=== PATIENT | female | born 1970 | race Caucasian/White ===

== ENCOUNTER 2022-06-06 14:38 | Outpatient (CLI) | payer BC, SELFPAY ==
[2022-06-06 21:28] LABS: Albumin* 4.8 g/dL (3.3-5.0); Chloride* 98 mmol/L (96-114)
[2022-06-06 21:30] LABS: Potassium* 4.2 mmol/L (3.6-5.1); Sodium* 136 mmol/L (135-149)
[2022-06-06 21:31] LABS: Aspartate Amino Transferase* 23 U/L (12-35); Bilirubin Total* 0.4 mg/dL (0.1-1.5); Carbon Dioxide* 28 mmol/L (20-32); Creatinine* 0.9 mg/dL (0.5-1.5); Estimated Glomerular Filt Rate 78 ml/min; Total Protein* 7.7 g/dL (6.0-8.3)
[2022-06-06 21:32] LABS: Alanine Aminotransferase* 20 U/L (4-35); Alkaline Phosphatase* 116 U/L (40-150); Blood Urea Nitrogen* 15 mg/dL (5-24); Calcium* 10.1 mg/dL (8.4-10.6); Glucose* 153 mg/dL (60-115)
== END 2022-06-06 14:39 | disposition home or self-care (01) ==
LOC: FRMREF 14:40
PROVIDERS: PCP Physician Assistant Medical; Visit Provider Dermatology
DX: L30.9 Dermatitis, unspecified (principal); Z79.631 Long term (current) use of antimetabolite agent
CPT/HCPCS: 80053

== ENCOUNTER 2022-07-02 08:14 | Outpatient (CLI) | payer BC, SELFPAY ==
[2022-07-02 14:27] LABS: Chloride* 100 mmol/L (96-114)
[2022-07-02 14:28] LABS: Albumin* 4.6 g/dL (3.3-5.0); Potassium* 4.7 mmol/L (3.6-5.1); Sodium* 139 mmol/L (135-149)
[2022-07-02 14:30] LABS: Bilirubin Total* 0.5 mg/dL (0.1-1.5); Creatinine* 0.9 mg/dL (0.5-1.5); Estimated Glomerular Filt Rate 78 ml/min
[2022-07-02 14:31] LABS: Alanine Aminotransferase* 22 U/L (4-35); Alkaline Phosphatase* 99 U/L (40-150); Aspartate Amino Transferase* 21 U/L (12-35); Blood Urea Nitrogen* 13 mg/dL (5-24); Calcium* 9.5 mg/dL (8.4-10.6); Carbon Dioxide* 26 mmol/L (20-32); Glucose* 116 mg/dL (60-115); Total Protein* 7.3 g/dL (6.0-8.3)
== END 2022-07-02 08:15 | disposition home or self-care (01) ==
LOC: FRMREF 08:28
PROVIDERS: PCP Physician Assistant Medical; Visit Provider Dermatology
DX: L20.9 Atopic dermatitis, unspecified (principal)
CPT/HCPCS: 80053

== ENCOUNTER 2022-10-03 08:52 | Outpatient (CLI) | payer BC, SELFPAY ==
[2022-10-03 13:54] LABS: Albumin* 4.3 g/dL (3.3-5.0); Chloride* 102 mmol/L (96-114); Potassium* 4.4 mmol/L (3.6-5.1); Sodium* 139 mmol/L (135-149)
[2022-10-03 13:56] LABS: Creatinine* 0.9 mg/dL (0.5-1.5); Estimated Glomerular Filt Rate 78 ml/min
[2022-10-03 13:57] LABS: Alanine Aminotransferase* 23 U/L (4-35); Alkaline Phosphatase* 98 U/L (40-150); Aspartate Amino Transferase* 20 U/L (12-35); Bilirubin Total* 0.7 mg/dL (0.1-1.5); Blood Urea Nitrogen* 10 mg/dL (5-24); Calcium* 9.6 mg/dL (8.4-10.6); Carbon Dioxide* 30 mmol/L (20-32); Glucose* 93 mg/dL (60-115); Total Protein* 7.4 g/dL (6.0-8.3)
== END 2022-10-03 08:53 | disposition home or self-care (01) ==
LOC: FRMREF 08:53
PROVIDERS: PCP Physician Assistant Medical; Visit Provider Dermatology
DX: Z79.631 Long term (current) use of antimetabolite agent (principal)
CPT/HCPCS: 80053

== ENCOUNTER 2023-10-14 09:20 | Outpatient (CLI) | payer BC, SELFPAY | END 2023-10-14 09:21 | disposition home or self-care (01) | PROVIDERS: PCP Physician Assistant Medical; Visit Provider Physician Assistant Medical | DX: R63.5 Abnormal weight gain (principal); Z13.228 Encounter for screening for other metabolic disorders; Z13.220 Encounter for screening for lipoid disorders; Z13.29 Encounter for screening for other suspected endocrine disorder | CPT/HCPCS: 80053; 80061; 84443 ==

== ENCOUNTER 2024-03-16 15:17 | Outpatient (CLI) | payer BC, SELFPAY ==
--- NOTE | 2024-03-16 15:40 | CRLHL7_ITS ---
For Patients: As a result of the Century Cures Act, medical imaging exams and procedure reports are released immediately into your electronic medical record. You may view this report before your referring provider. If you have questions, please contact your health care provider. BILATERAL SCREENING MAMMOGRAM WITH COMPUTER-AIDED DETECTION AND TOMOSYNTHESIS TECHNIQUE: CC and MLO views were obtained. These mammographic images have been obtained using full-field digital technique. These mammographic images were interpreted with the benefit of computer-aided detection. Breast tomosynthesis was used in this interpretation. COMPARISON FILM: 07/20/20. FINDINGS: There are scattered areas of fibroglandular density. IMPRESSION: There is no radiographic evidence for malignancy. ASSESSMENT: BI-RADS Category 1: Negative RECOMMENDATION: Routine screening mammogram in 1 year. A lay language report of this examination will be provided to the patient. WILBERT LUBIN M.D. Diagnostic Radiologist [email or web address] Transcribed: 2:[address]/Dictated by: Wilbert Lubin MD @ 03/17/2024 12:11:00 PM (Electronically Signed)
== END 2024-03-16 15:18 | disposition home or self-care (01) ==
LOC: MAMMO 15:18
PROVIDERS: PCP Physician Assistant Medical; Visit Provider Physician Assistant Medical
DX: Z12.31 Encounter for screening mammogram for malignant neoplasm of breast (principal)
CPT/HCPCS: 77063; 77067